=== PATIENT | female | born 2000 | race Caucasian/White ===

== ENCOUNTER 2021-12-05 23:57 | Emergency (ER) | payer OTHER ==
--- NOTE | 2021-12-06 01:02 | ED Physician Documentation ---
PD HPI FEMALE - Stated complaint Stated Complaint: FEMALE - Chief complaint Chief Complaint: Abd Pain - History obtained from History obtained from: Patient - Additional information Additional information: The patient comes to the emergency department chief complaint of blood on the toilet paper when wiping. She states that she had her last menstrual period began on October 26 and that she [facility] positive [facility]. She states that she has not had any pain or cramping and no dysuria or other bleeding. She states that she urinated this evening and when she wiped, she noticed a brown discoloration on the toilet paper. The patient had a miscarriage last year and states that she became alarmed when she saw the discoloration, which prompted her to come here. The patient states she has not had any bleeding onto her underwear. She urinated here to give us a urine sample and states that the toilet paper was clear of any discoloration after wiping this time. The patient is waiting to see OB, but has not had an appointment yet. No other complaints at this time. Review of Systems Ten Systems: 10 systems reviewed and negative Constitutional: reports: Reviewed and negative Eyes: reports: Reviewed and negative Ears: reports: Reviewed and negative Nose: reports: Reviewed and negative Throat: reports: Reviewed and negative Cardiac: reports: Reviewed and negative Respiratory: reports: Reviewed and negative GI: reports: Reviewed and negative : reports: Vaginal bleeding, Now EGA Skin: reports: Reviewed and negative Musculoskeletal: reports: Reviewed and negative Neurologic: reports: Reviewed and negative Psychiatric: reports: Reviewed and negative Endocrine: reports: Reviewed and negative Immunocompromised: reports: Reviewed and negative PD PAST MEDICAL HISTORY - Present Medications Home Medications: Ambulatory Orders Medication Instructions Recorded Confirmed No Known Home Medications 12/06/21 12/06/21 - Allergies Allergies/Adverse Reactions: Allergies Allergy/AdvReac Type Severity Reaction Status Date / Time No Known Drug Allergies Allergy Verified 12/06/21 00:06 PD ED PE NORMAL - Vitals Vital signs reviewed: Yes - General General: Alert and oriented X 3, No acute distress, Well developed/nourished - HEENT HEENT: Atraumatic, PERRL, EOMI, Moist mucous membranes - Neck Neck: Supple, no meningeal sign - Cardiac Cardiac: RRR, No murmur, Strong equal pulses - Respiratory Respiratory: No respiratory distress, Clear bilaterally - Abdomen Abdomen: Soft, Non tender, Non distended - Female Female : Deferred - Derm Derm: Normal color, Warm and dry, No rash - Extremities Extremities: No deformity - Neuro Neuro: Alert and oriented X 3, distribution technician 2-12 intact, Normal speech - Psych Psych: Normal mood, Normal affect Results - Vitals Vitals: Vital Signs - 24 hr 12/06/21 00:00 Temperature 36.3 C L Heart Rate 75 Respiratory 15 Rate Blood Pressure 126/75 O2 Saturation 98 Oxygen O2 Source Room air - Labs Labs: Laboratory Tests 12/06/21 00:26 HCG, Quant 25490.00 PD MEDICAL DECISION MAKING - ED course Complexity details: reviewed results, re-evaluated patient, considered differential, d/w patient ED course: The patient had had minimal symptoms and was not actively bleeding. She had not had any abdominal discomfort. I discussed with her that she is very early in and since she does not have ongoing bleeding, I do not feel emergent ultrasound is indicated. We have discussed other reasons for bleeding besides miscarriage. 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 Departure - Departure Disposition: 01 Home, Self Care Clinical Impression: Vaginal bleeding affecting early Condition: Stable Instructions: ED Miscarriage Poss Comments: Your hormone levels look good. You had transient bleeding, which sounds like some old bloody residue that has made its way out, but does not sound like fresh, active bleeding. Additionally, you have had no further bleeding onto your underwear or with urination, and have not had any pain, cramping, or other worrisome symptoms. At this point in time, you should f ollow-up with your OB specialist within the week if you are able. At this early stage in , there is not a lot that can be done to save a if a miscarriage is going to occur. Usually a miscarriage at this stage is due to either inadequate hormonal support of the by your body, or a genetic defect that affects the early process of development. If you begin having worsening bleeding, accompanied by abdominal pain, please return to the emergency department. Otherwise, please call your OB's office first thing tomorrow to see if you can set up an appointment within the next calendar week.
[2021-12-06 01:39] VITALS: BP 117/74
== END 2021-12-06 01:39 | disposition home or self-care (01) ==
LOC: ED 23:57
DX: O20.9 Hemorrhage in early pregnancy, unspecified (principal); Z3A.00 Weeks of gestation of pregnancy not specified
CPT/HCPCS: 36415; 84702; 99282; 99283